=== PATIENT | male | born 1950 | race Caucasian/White ===

== ENCOUNTER 2024-11-07 08:27 | Outpatient (CLI) | payer MEDICARE, SELFPAY ==
--- OUTSIDE RECORDS SUMMARY | 2024-11-07 09:23 | XMS_ITS | Clinical Summary ---
Author Organization [facility] Address [address] [place] [address] Phone Care Team Providers Care Board Runner Name Role Phone Unavailable Primary Care Provider Unavailabl e Social History Tobacco Use Types Packs/Day Years Used Date Smoking Tobacco: Never Assessed Sex and Gender Information Value Date Recorded Sex Assigned at Not on file Legal Sex Male 9:33 PM CDT Gender Identity Not on file Sexual Orientation Not on file Plan of Treatment Health Maintenance Due Date Last Done Comments Hepatitis C Virus (HCV) Screening 1950 TdaP Immunization 1950 Cologuard 1997 Colonoscopy 1997 Colorectal Cancer Screening 1997 Immunochemical Fecal Occult Blood 1997 Pneumococcal Immunization (50+ years) (2 of 2 - PCV20 or PCV21) 02/04/2021 02/05/2020 Influenza Immunization (#1) 2024 09/0 07/2019, 12/15/2018, 01/04/2018, Additional history exists SARS-COV-2 Immunization (2024- season) 2024 12/22/2020, 05/13/2020, 04/11/2020 Respiratory Syncytial Virus (RSV) Immunization (Adult) (1 - 1-dose 75+ series) 11/26/2027 Zoster Immunization Completed 03/13/2019, 9 Hepatitis B Immunization Aged Out No longer eligible based on patient's age to complete this topic Human Papillomavirus (HPV) Immunization Aged Out No longer eligible based on patient's age to complete this topic Meningococcal Immunization (ACWY) Aged Out No longer eligible based on patient's age to complete this topic Rotavirus Immunization Aged Out No lo nger eligible based on patient's age to complete this topic Insurance MEDICARE [facility]
--- OUTSIDE RECORDS SUMMARY | 2024-11-07 09:23 | XMS_ITS | Encounter Summary ---
Author Organization [facility] Address [address] [place] [address] Care Team Providers Care Minister Helper Name Role Phone Jason Loomis MD Primary Care Provider [phone] Encounter Details Date Type Department Care Team (Late st Contact Info) Description 11/02/2022 Lab Requisition [facility] [address] [facility] [place] [address] Estefania Johnson, DO [address] [facility] [address] [place] [address] Social History Tobacco Use Types Packs/Day Years Used Date Smoking Tobacco: Never Smokeless Tobacco: Never Alcohol Use Standard Drinks/Week Comments Not Currently 0 (1 standard drink = 0.6 oz pur e alcohol) Sex and Gender Information Value Date Recorded Sex Assigned at Male 06/30/2022 2:02 PM CDT Legal Sex Male 2:02 PM CDT Gender Identity Not on file Sexual Orientation Choose not to disclose 2019 5:55 PM RECORD CUTTER documented as of this encounter Plan of Treatment Upcoming Encounters Date Type Department Care Team (Late Contact Info) Description 12/12/2024 1:00 AM CDT Clinical Support [facility] - Cardiology [address] [facility], [facility] [address] [place] [id number] 03/01/2025 2:40 PM RECORD CUTTER Office Visit [facility] [address] [place] [address] Tristan Yuen MD [address] [facility] [address] [place] [address] 03/13/2025 1:00 AM RECORD CUTTER Clinical Support [facility] - Cardiology [address], [address] [address] 03/15/2025 2:00 PM RECORD CUTTER Office Visit [facility] - Cardiology [address], [address] [address] Vito Carlton MD [address] [address] 06/12/2025 1:00 AM CDT Clinical Support [facility] - Cardiology [address], [address] [phone] documented as of this encounter Procedures Procedure Name Priority Date/Time Associated Diagnosis Comments DERMATOPATHOLOGY Routine 11/02/2022 9:46 AM CDT documented in this encounter Results * DERMATOPATHOLOGY (11/02/2022 9:46 AM CDT) Case Report Dermatopathology Report Case: [id number] Authorizing Provider: Estefania Johnson DO Collected: 11/02/2022 09:46 AM Ordering Location: [facility] Lab Received: 11/03/2022 06:34 AM Pathologist: Loyda Leal MD Specimen: Skin, left upper arm 4:01 PM CDT DERMATOPATHOLOGY LABORATORY Final Diagnosis Specimen A. SKIN, left upper arm: LICHEN PLANUS-LIKE KERATOSIS (BENIGN LICHENOID KERATOSIS) (L82.1) 3 4:01 PM CDT DERMATOPATHOLOGY LABORATORY at 1601 CDT Clinical History R/O NMSC 3 4:01 PM CDT DERMATOPATHOLOGY LABORATORY Gross Description Specimen A: Received is one formalin filled container labeled with the patient's name and designated left upper arm. The specimen consists of a shave biopsy measuring 8x7x1 mm. Jar 0. 3 4:01 PM CDT DERMATOPATHOLOGY LABORATORY Microscopic Description Specimen A. SKIN, left upper arm: The epidermis is mildly acanthotic. There is a lichenoid infiltrate with vacuolar changes of basilar keratinocytes and scattered necrotic keratinocytes. 3 4:01 PM CDT DERMATOPATHOLOGY LABORATORY Disclaimer An external and internal positive and negative controls are appropriate for the histochemical, immunohistochemical and immunofluorescence stain(s) in this case (if any), except where stated explicitly. The performance characteristics of the stain(s) cited in this report were developed and its performance characteristic determined by the Dermatopathology Laboratory at [facility], directed by Dr. Anais Adhikari. These tests need not be, and therefore are not, approved by the [place] Food and Drug Administration. The tests are used for clinical purposes. Billing Codes Specimen Charges Stain Charges 24107 1 3 4:01 PM CDT DERMATOPATHOLOGY LABORATORY Embedded Images 3 4:01 PM CDT DERMATOPATHOLOGY LABORATORY Pathology/Cytolo gy TISSUE SPECIMEN FROM SKIN / Unknown 11/02/2022 9:46 AM CDT 11/03/2022 6:34 AM CDT Estefania Johnson DO LAB - PATHOLOGY/CYTOLOGY ORDERABLES Final Result DERMATOPATHOLOGY LABORATORY [facility] - Department of Dermatology [facility] [address] [place] [address], [address] [phone] documented in this encounter Visit Diagnoses Not on filedocumented in this encounter Care Teams Minister Helper Relationship Specialty Start Date End Date Jason Loomis MD [address] [place] [address] PCP - General Internal Medicine 04/06/17 documented as of this encounter
--- OUTSIDE RECORDS SUMMARY | 2024-11-07 09:23 | XMS_ITS | Clinical Summary ---
Author Organization [facility] Address [address] [place] [address] Care Team Providers Care Office Machine Inspector Name Role Phone Jason Loomis MD Primary Care Provider + Jason Thorne MD Unavailable [phone] Jessica MD Unavailable Allergies Active Allergy Reactions Criticality Noted Date Comments Amoxicillin Diarrhea Low 08/21/2013 Clindamycin Other (See comments) High 08/28/2016 [place] hot in throat, Throat felt like it was on fire Erythromycin Anaphylaxis High 07/16/2016 Medications dapagliflozin (FARXIGA) 10 mg tablet Take 1 tablet (10 mg total) by mouth every morning Active tadalafiL (ADCIRCA) 10 mg tablet Take 1 tablet (10 mg total) by mouth daily as needed for erectile dysfunction Active eplerenone (INSPRA) 25 mg tablet Take 1 tablet (25 mg total) by mouth every morning Active sacubitriL-vals tayler (ENTRESTO) 49-51 mg tabletIndicatio ns:chronic heart failure Take 1 tablet by mouth 2 (two) times a day Active metoprolol XL (TOPROL-XL) 200 mg extended release tablet Take 0.5 tablets (100 mg total) by mouth 2 (two) times a day Active econazole 1 % cream Apply 1 Application topically as needed Active icosapent ethyL (VASCEPA) 1 gram capsule Take 1 capsule (1 g total) by mouth 2 (two) times a day Active levothyroxine (SYNTHROID) 175 mcg tablet Take 1 tablet (175 mcg total) by mouth laundry folder before breakfast Active aspirin 81 mg enteric coated tablet Take 1 tablet (81 mg total) by mouth every morning Active coenzyme Q10 100 mg capsule Take 2 capsules (200 mg total) by mouth daily Active multivitamin capsule Take 1 capsule by mouth daily Active cholecalciferol 25 mcg (1,000 unit) tablet Take 1 tablet (1,000 Units total) by mouth 2 (two) times a week Active rosuvastatin (CRESTOR) 40 mg tablet Take 30 mg by mouth nightly Active docusate sodium (COLACE) 100 mg capsuleIndicati ons:constipatio n Take 1 capsule (100 mg total) by mouth 2 (two) times a day 4 Active Eliquis 5 mg tablet Take 1 tablet (5 mg total) by mouth 2 (two) times a day 4 Active meloxicam (MOBIC) 15 mg tablet Take 1 tablet (15 mg total) by mouth daily 30 tablet 11 4 Active Active Problems Problem Noted Date Diagnosed Date Arthritis of right knee 09/16/2023 S/P left inguinal hernia repair 04/02/2023 Primary osteoarthritis of left knee 10/22/2022 Unilateral inguinal hernia without obstruction o r gangrene 09/22/2022 Assessment & Plan (09/22/2022 9:43 AM CDT): The patient has a symptomatic left inguinal hernia. He also was having issues with some meniscus that will need surgery as well. This is the more bothersome of the 2 at current time. This is tentatively set to be done in November. He wants a few months to recover after this which I think is absolutely reasonable. We will tentatively set him up for a left inguinal hernia repair in March. We will have him see cardiology in clearance before hand. We have gone over signs and symptoms of incarceration for which he would let us know as this could be a sign of bowel entrapment and other more serious issues. Hx of colonic polyps 03/25/2022 Overview (03/25/2022): Added automatically from request for surgery [id number] Cardiac resynchronization th erapy defibrillator (CRUSHER ASSEMBLER-D) in place 04/06/2017 Overview (02/19/2023): Last Assessment & Plan: I personally interrogated the ICD. The device is a [employer] brand BiV Chamber ICD. Model: Amplia MRI Quad Implanted on : 03/19/2017 Battery life: 7.5 yrs Leads: Atrial lead: P waves: 3.6 mV Capture threshold (mA): <1.5 @ 0.4 Impedance: 437 ohms Programmed 1.5 @ 0.4 ms, sensitivity 0.3 mV RV lead R waves: 13.6 mV Capture threshold (mA): <2 @ 0.4 Impedance: 437 ohms Programmed 2 @ 0.0.4 ms, sensitivity 0.3 mV LV lead Capture threshold (mA): <2 @ 0.4 Impedance: 646 ohms Programmed 2 @ 0.4 ms Episodes: 1 AT/AF episode, 3 hours, 1 NSVT on 06/14/2019 Pacing [place]: RA: 55.5% RV/LV: 89.1% Programming: Mode: DDD Lower rate: 60 bpm Upper rate: 140 bpm AV delay: Sensed/Paced = 130/150 Therapies: VF Zone > 182bpm - treated with shocks FVT zone > 250 bpm VT Zone > 167 bpm - monitor only Ventricular tachycardia 03/19/2017 Overview (02/19/2023): Last Assessment & Plan: No sustained VT on interrogation. Systolic CHF with reduced le ft ventricular function, NYHA class 2 12/17/2016 BMI 30.0-30.9,adult 11/11/2016 Healthcare maintenance 11/10/2016 Medication management 11/10/2016 Atypical atrial flutter 11/06/2016 Overview (02/19/2023): Last Assessment & Plan: No sustained recurrence. Some afib seen. CTM Presence of prosthetic heart valve 09/28/2016 Overview (02/19/2023): On 09-24-2016 33 mm Mosaic Presence of aortocoronary bypass graft 7 Overview (02/19/2023): CHRISTY to LAD and SVG to OM1 on 09-24-2016 S/P tricuspid valve repair 09/25/2016 Overview (02/19/2023): Overview: On 09-24-2016 S/P MVR (mitral valve replacement) 09/25/2016 Overview (02/19/2023): Overview: On 09-24-2016 33 mm Mosaic Overview: On 09-24-2016 33 mm Mosaic S/P Maze operation for atrial fibrillation 09/25 Overview (02/19/2023): Overview: Biatrial intraoperative Maze done on 09-24-2016 S/P CABG x 2 09/24/2016 Overview (02/19/2023): Overview: CHRISTY to LAD and SVG to OM1 on 09-24-2016 Overview: CHRISTY to LAD and SVG to OM1 on 09-24-2016 Sleep apnea 07/13/2016 Overview (02/19/2023): Overview: Using CPAP Using CPAP Rheumatic tricuspid insufficiency 07/13/2016 Osteoarthritis 07/13/2016 Nonrheumatic mitral valve insufficiency 07/14/19 17 Overview (02/19/2023): Overview: Severe -ECHO 02/06 Overview: Severe -ECHO 02/06 Severe -ECHO 02/06 Elevated liver enzymes 07/13/2016 Dyslipidemia 07/13/2016 Vitamin D deficiency 04/20/2014 Overview (05/28/2016): Vitamin D deficiency Polyp of colon 04/20/2014 Overview (05/28/2016): Colon polyps History of anticoagulant therapy 04/20/2014 Overview (05/28/2016): Encounter for current long-term use of anticoagulants Hyperlipidemia 04/20/2014 Overview (02/19/2023): Hyperlipidemia Asymmetrical sensorineural hearing loss 01/05/20 14 Sensorineural hearing loss (SNHL) of both ears 0 11/09/2013 Generalized ischemic myocardial dysfunction 06/22 Overview (05/29/2016): Ischemic cardiomyopathy Benign hypertension 07/08/2013 Overview (05/29/2016): BENIGN HYPERTENSION Hypothyroidism 12/29/2010 Overview (02/19/2023): HYPOTHYROIDISM NOS Essential (primary) hypertension 01/01/2010 Persistent atrial fibrillation 11/28/2009 Overview (02/19/2023): Afib Overview: On coumadin. S/P biatrial intraoperative Maze done on 09-24-2016 and recurrence on 09-27-2016 Overview: Afib Last Assessment & Plan: [id number] at least 3 - HTN, age, and CHF. Cont AC. On coumadin. S/P biatrial intraoperative Maze done on 09-24-2016 and recurrence on 09-27-2016 Last Assessment & Plan: No recurrent Afib on interrogation for this year. 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 angina pectoris 02/23/2008 Overview (02/19/2023): COR ATH UNSP VSL NTV/GFT Overview: S/p IA, stent '99 Overview: S/p IA, stent '99 S/p IA, stent '99 Resolved Problems Problem Noted Date Diagnosed Date Resolved Date Hypertension 04/20/2014 11/11/2016 Overview (05/28/2016): Hypertension Immunizations Immunization Administration Dates Next Due HPV, Unspecified 12/02/2016 Influenza, Quadrivalent, Spl it, Preservative Free, Intradermal 12/09/2015,11/21/2014 Influenza, Split 12/13/2012, 2,12/26/2010,2009 Influenza, Trivalent, IM (MDV) 12/03/2016,2008,12/07/2007 Influenza, Trivalent, Recomb inant, Egg Free, Preservative Free, Antibiotic Free, IM (FLUBLOK) 12/07/2013 Tdap 12/07/2007 Surgical History Surgery Date Site/Laterality Comments OTHER SURGICAL HISTORY elbow surgery right CARDIAC VALVE REPLACEMENT Mitral Valve Replacement with Bioprosthetic Maze, Left Atrial Appendage ligation, Tricuspid Grace Repair CARDIAC DEFIBRILLATOR PLACEMENT [employer] CARDIAC PACEMAKER PLACEMENT [employer] PORT PLACEMENT CHEST >5 YEARS 10/06/2016 N/A PORT PLACEMENT CHEST >5 YEARS 10/06/2016 N/A CORONARY ARTERY BYPASS GRAFT 09/24/2016 CABG-2 vessel TOTAL KNEE ARTHROPLASTY 12/31/2022 Left FINGER SURGERY Right middle finger HERNIA REPAIR 03/25/2023 Bilateral inguinal Medical History Medical History Date Comments Atrial fibrillation (HCC) Atrial fibrillation Sleep apnea sleep apnea Benign hypertension Unspecified hypothyroidism Primary osteoarthritis of left knee CAD (coronary artery disease) Hypothyroidism Motion sickness Myocardial infarct (HCC) 11/1998 Family History Medical History Relation Name Comments Hypertension Brother Hypertension; Heart attack Father heart attack; Hypertension Father Hypertension; Other Father Heart disease/ [place]; Cause of : Heart disease/ [place] Bipolar disorder Mother Bipolar dis order; Cancer Mother Cancer; Bipolar disorder Sister Bipolar dis order; Hypertension Son 1 Hypertension; Hypothyroidism Son 2 Hypothyroidis m; Relation Name Status Comments Brother Father (Age 48) Mother Sister Son 1 Son 2 Social History Tobacco Use Types Packs/Day Years Used Date Smoking Tobacco: Never Smokeless Tobacco: Never Alcohol Use Standard Drinks/Week Comments No 0 (1 standard drink = 0.6 oz pur e alcohol) AUDIT-C Answer Date Recorded Q1: How often do you have a drink containing alcohol? Never 08/31/2023 Q2: How many drinks containi ng alcohol do you have on a typical day when you are drinking? Patient does not drink Q3: How often do you have si x or more drinks on one occasion? Never 08/31/2023 Personal Safety Answer Date Recorded Have you ever been in or are you currently in a harmful physical or emotional relationship or is someone making you feel afraid or unsafe? 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 Gender Identity Not on file Sexual Orientation Not on file Obstetrics History Last Filed Vital Signs Vital Sign Reading Time Taken Comments Blood Pressure 98/52 09/17/2023 7:36 AM CDT Pulse 60 09/17/2023 7:36 AM CDT Temperature 37.1 C (98.8 F) 09/17/2023 7:36 AM CDT Respiratory Rate 16 09/17/2023 7:36 AM CDT Oxygen Saturation 96% 09/17/2023 7:36 AM CDT Inhaled Oxygen Concentration - - Weight 98.1 kg (216 lb 4.3 oz) 09/16/2023 12:31 PM CDT Height 180.3 cm (5' 11) 09/16/2023 12:31 PM CDT Body Mass Index 30.16 09/16/2023 12:31 PM CDT Plan of Treatment Health Maintenance Due Date Last Done Comments Hepatitis C Screening 1950 Hepatitis B Screening 1970 Prostate Cancer Screening-PSA 11/04/2017 11/04/2016, 04/17/2015 Well Visit 65+ 2017 DTaP/Tdap/Td Vaccine (2 - Td or Tdap) 12/06/2017 12/07/2007 Depression Screening 12/30/2017 12/30/2016, 12/17/2016, 12/10/2016, Additional history exists Pneumococcal vaccine 65+ (2 of 2 - PPSV23, PCV20, or PCV21) 04/01/2020 02/05/2020 Fall Risk Assessment 09/16/2024 09/17/2023, 12/24/19 23 Covid-19 Vaccine (5 - 2024-2 6 season) 2024 12/09/2021, 12/22/2020, 05/13/2020, Additional history exists Influenza Vaccine (#1) 2024 , 12/05/2020, 10/29/2019, Additional history exists Colon Cancer Screening-Colonoscopy 06/24/2032 06/24/2022, 01/10/2016, 01/10/2016, Additional history exists Zoster Vaccine Completed 03/13/2019, 01/11/2019 Abdominal Aortic Aneurysm (A AA) Screen Completed 09/11/2020, 08/02/2020, 05/29/2020 Colon Cancer Screening-CT Colonography Discontinued 06/24/2022, 01/10/2016, 01/10/2016, Additional history exists Colon Cancer Screening-DNA Stool Discontinued 06/24/2022, 01/10/2016, 01/10/2016, Additional history exists Colon Cancer Screening-FIT Discontinued 06/24, 01/10/2016, 01/10/2016, Additional history exists Colon Cancer Screening-Sigmoidoscopy Discontinued 06/24/2022, 01/10/2016, 01/10/2016, Additional history exists Medical Devices Implanted Type Area Cornice Maker Device Identifier Shelf Expiration Date Model / Serial / Lot Icd-03/19/2017 Implanted:03/19 by Vito Carlton MD (Quantity not on file) ICD Chest Med[employer]onic [id number] / [id number] / [employer] Triathlon Posterior Stabilize Bead Knee Left 8 Component Femoral 5516-F-801 - [id number] Implanted:Qty: 1 on 12/31/2022 by Jason Thorne MD at Left: Knee [employer] [id number] 03/20/2026 5516-F-801 / / [id number] [employer] Triathlon Tritanium Knee 7 Baseplate Tibial 5536-B-700 - [id number] Implanted:Qty: 1 on 12/31/2022 by Jason Thorne MD at Left: Knee [employer] [id number] 07/21/2027 5536-B-700 / / [id number] [employer] Insert Tibial Triathlon 7 H13mm Knee Bearing Posterior Stabilize Sterile 1892-M-917-[id number] - [id number] Implanted:Qty: 1 on 12/31/2022 by Jason Thorne MD at Left: Knee [employer] [id number] 11/16/2023 5532-G-713 -E / / [id number] [employer]/C R Bard Mesh Surgical Inguinal Hernia Synthetic Patch 3dmax 4x6in [id number] - [id number] Implanted:Qty: 1 on 03/26/2023 by Abilio Colon MD at [facility] Left: Inguinal [employer]/C R Bard 06/20/2027 [id number] / / [id number] [employer]/O rtho Insert Tibial Fix Deep [facility] Xlpe Legion Sz 7-8 10mm [id number] - [id number] Implanted:Qty: 1 on 09/16/2023 by Jason Thorne MD at Right: Knee [employer] r[employer]o [id number] 10/06/2030 [id number] / / [id number] [employer]/O rtho Tibial Baseplate Knee Porous Right Fixed With Journey Lock K 15 Pork Size 7 [id number] - [id number] Implanted:Qty: 1 on 09/16/2023 by Jason Thorne MD at Right: Knee [employer] r[employer]o [id number] 04/27/2033 [id number] / / [id number] [employer]O rtho Legion Cruciate Retain Knee Right 8 Component Femoral Triplett Porous [id number] - [id number] Implanted:Qty: 1 on 09/16/2023 by Jason Thorne MD at Right: Knee [employer]o [id number] 03/27/2033 [id number] / / [id number] Procedures Procedure Name Priority Date/Time Associated Diagnosis Comments COLONOSCOPY 06/24/2022 7:25 AM CDT PSA SCREEN Routine 11/04/2016 8:01 AM CDT from Last 3 Months or Most Recently Relevant to Health Maintenance Results * COLONOSCOPY (06/24/2022 7:25 AM CDT) Anatomical Region Laterality Modality Other Narrative Procedure Note Jessica Giradr MD - 06/24/2022 7:25 AM CDT [facility] Patient Name: Vinicius Mendoza Procedure Date: 06/24/2022 7:25 AM Date of : 1950 Admit Type: Outpatient Age: 71 Gender: Male Attending MD: Jessica Girard M.D. Room: [facility] ENDOSCOPY ROOM 2 Note Status: Finalized Patient Profile: This is a 71 year old male hx of HTN, HLD, CAD,CHF, AF on AC, ICD, bioprosthetic valve, IRVIN, hypothyroidism here for colon polyp surveillance.No polyps found on colonoscopy 2015. One rectal polypin 2010. No family hx of colon cancer Procedure: Colonoscopy Indications: High risk colon cancer surveillance: Personalhistory of colonic polyps, Last colonoscopy: December2015 Referring MD: Jason Loomis M.D. Providers: Jessica Girard M.D. Impression: - Perianal skin tags found on perianal exam. - One 3 mm polyp in the descending colon, removedwith a jumbo cold forceps. Resected and retrieved. - Diverticulosis in the entire examined colon. - Internal hemorrhoids. Recommendation: - Patient has a contact number available for emergencies. The signs and symptoms of potential delayed complications were discussed with thepatient. Return to normal activities tomorrow. Written discharge instructions were provided to thepatient. - Discharge patient to home (with escort). - Resume previous diet. - Continue present medications. - Await pathology results. - Repeat colonoscopy in 7-10 years for surveillance based on pathology results. - Return to primary care physician as previously scheduled. Medicines: Monitored Anesthesia Care Complications: No immediate complications. Estimated Blood Loss: Estimated blood loss was minimal. Procedure: Pre-Anesthesia Assessment: - Prior to the procedure, a History and Physicalwas performed, and patient medications and allergieswere reviewed. The patient is competent. The risks and benefits of the procedure and the sedation optionsand risks were discussed with the patient. Allquestions were answered and informed consent was obtained. Patient identification and proposed procedure were verified by the physician, the nurse and the certified medical biller in the endoscopy suite. Mental Status Examination: normal. Prophylactic Antibiotics: The patient does not require prophylactic antibiotics. Prior Anticoagulants: The patient has taken Pradaxa (dabigatran), last dose was 3 days prior toprocedure. ASA Grade Assessment: III - A patient with severe systemic disease. After reviewing the risks and benefits, the patient was deemed in satisfactory condition to undergo the procedure. The anesthesia plan was to use monitored anesthesia care (MAC). Immediately prior to administration of medications, the patient was re-assessed for adequacy to receive sedatives. The heart rate, respiratory rate, oxygen saturations, blood pressure, adequacy of pulmonary ventilation, and response to care were monitored throughout the procedure. The physical status ofthe patient was re-assessed after the procedure. The benefits, risks and alternatives of theprocedure and sedation were discussed and informed consentwas obtained. All questions were answered. Please referto the signed informed consent document in the medical record. The scope was passed under direct vision.The Colonoscope [id number] was introducedthrough the anus and advanced to the the cecum, identifiedby appendiceal orifice and ileocecal valve. The bowel preparation used was Miralax via split dose instruction. The bowel preparation used wasbisacodyl tablets via split dose instruction. The colonoscopy was performed without difficulty. The patient tolerated the procedure well. The quality of thebowel preparation was adequate. Bowel prep wasadministered using a split dose. Findings: Skin tags were found on perianal exam. A 3 mm polyp was found in the descending colon. The polyp wassessile. The polyp was removed with a jumbo cold forceps. Resection andretrieval were complete. Scattered small and large-mouthed diverticula were found in theentire colon. Internal hemorrhoids were found during retroflexion. Jessica Girard M.D. 06/24/2022 8:50:30 AM Number of Addenda: 0 Note Initiated On: 06/24/2022 7:25 AM Procedure Code(s): --- Professional --- 53389, Colonoscopy, flexible; with biopsy, single or multiple --- Technical --- 35196, Colonoscopy, flexible; with biopsy, single or multiple Diagnosis Code(s): --- Professional --- Z86.010, Personal history of colonic polyps D12.4, Benign neoplasm of descending colon K64.8, Other hemorrhoids K64.4, Residual hemorrhoidal skin tags K57.30, Diverticulosis of large intestine without perforation orabscess without bleeding --- Technical --- Z86.010, Personal history of colonic polyps D12.4, Benign neoplasm of descending colon K64.8, Other hemorrhoids K64.4, Residual hemorrhoidal skin tags K57.30, Diverticulosis of large intestine without perforation orabscess without bleeding CPT copyright 2020 [employer]. All rights reserved. The codes documented in this report are preliminary and upon salmon troll fisher reviewmay be revised to meet current compliance requirements. Recognized by the [employer] for promoting quality in endoscopy us Jessica Girard MD ENDOSCOPY PROCEDURES Final Resul t * PSA screen (11/04/2016 8:01 AM CDT) [facility] PSA 0.6 0.0 - 4.0 ng/mL [facility] - 01 Comment: Melissa ECLIA methodology. According to the [employer], Serum PSA should decrease and remain at undetectable levels after radical prostatectomy. The AUA defines biochemical recurrence as an initial PSA value 0.2 ng/mL or greater followed by a subsequent confirmatory PSA value 0.2 ng/mL or greater. Values obtained with different assay methods or kits cannot be used interchangeably. Results cannot be interpreted as absolute evidence of the presence or absence of malignant disease. 11/04/2016 8:01 AM CDT 11/04/2016 Narrative [facility] - 11/05/2016 7:15 AM CDT Performed at: [address] [id number] Speech Language Pathology Assistant: Casimiro Mcpherson PhD, Phone: [phone] Jason Loomis MD LAB BLOOD ORDERABLES Fin al Result [facility] - 01 from Last 3 Months or Most Recently Relevant to Health Maintenance Insurance MEDICARE [facility] Member Subscriber Plan / Payer (Ef fective 2020-Present) Name:Vinicius Mendoza Relation to Subscriber:Self Name:Vinicius Mendoza Payer ID:[id number] Group ID:Not on file Type:COMMERCIAL Address: [facility] [address] [id number] [facility] Member Subscriber Plan / Payer (Ef fective 2020-Present) Name:Vinicius Mendoza Relation to Subscriber:Self Name:Vinicius Mendoza Payer ID:[id number] Group ID:[id number] Type:COMMERCIAL Address: [facility] [address] [id number] MEDICARE [facility] Advance Directives For more information, please contact: [phone] * Full Code (Latest Code Status on File) Date Activated Date Inactivated Comments 09/16/2023 5:48 PM 09/17/2023 4:12 PM * Full Code Date Activated Date Inactivated Comments 12/31/2022 5:02 PM 01/01/2023 4:44 PM * Full Code Date Activated Date Inactivated Comments 06/24/2022 7:50 AM 06/24/2022 1:36 PM * Full Code Date Activated Date Inactivated Comments 06/24/2022 7:50 AM 06/24/2022 7:50 AM Care Teams Office Machine Inspector Relationship Specialty Start Date End Date Jason Loomis MD [address] [address] PCP - General 05/22/16 Jason Thorne MD [address] [facility] [address] [place] [address] Consulting Physician Orthopedic Surgery 09/22/22 Jessica Girard MD [address] [place] [address] [facility] [address] [place] [address] Consulting Physician Gastroenterology 09/22/22
--- OUTSIDE RECORDS SUMMARY | 2024-11-07 09:24 | XMS_ITS | Clinical Summary ---
Author Organization [facility] Address [address] [place] [address] Care Team Providers Care Stone Driller Helper Name Role Phone Jason Loomis MD Primary Care Provider [phone] Source Comments [facility],non-[facility] Affiliates and Associated Physician Practices is amultiple site organization consisting of ambulatory clinics and hospital sitesin [place], [place], [place] and [place]. This disclosure is being madepursuant to the Care Everywhere program and may not contain all information available regarding this patient. Last updated 17.[facility] Allergies Active Allergy Reactions Criticality Noted Date Comments Clindamycin Other High 08/28/2016 [place] hot in throat, Throat felt like it was on fire Erythromycin Anaphylaxis High 07/16/2016 Medications * Be aware that medications may not be up to date on this document. Alwaysverify current medications with the patient. aspirin (ASPIRIN) 81 MG tablet Take 1 (one) tablet by mouth once daily Active MULTIPLE VITAMIN PO Take 1 tablet by mouth once daily Active rosuvastatin (CRESTOR) 10 MG tablet Take 3 (three) tablets by mouth once daily Active vitamin D3 (CHOLECACIFEROL) 5000 UNITS Take 1 (one) tablet by mouth DAILY 10,000 7 Active ENTRESTO 49-51 MG tablet 1 (one) tablet 2 times daily 0 Active metoprolol succinate XL 24hr (TOPROL XL) 200 MG tabletIndication s:Persistent atrial fibrillation (HCC),Atypical atrial flutter (HCC) Take 1 tablet by mouth once daily 90 tablet 3 0 Active Additional Information Patient taking differently: 100 mgOral2 TIMES DAILY, Reported on 08/23/2024 econazole nitrate (SPECTAZOLE) 1 % cream once daily as needed prn 0 Active VASCEPA 1 g capsule 0 Active levothyroxine (SYNTHROID) 175 MCG tablet 0 Active apixaban (ELIQUIS) 5 MG tablet Take 1 (one) tablet by mouth 2 times daily 180 tablet 2 1 Active tadalafil (CIALIS) 10 MG tablet Take 1 (one) tablet by mouth once daily as needed 1 Active eplerenone (INSPRA) 25 MG tablet 1 Active CPAP Use as directed Acti ve amoxicillin (AMOXIL) 500 MG capsule ONLY FOR DENTAL WORK 2 Active QuickVue At-Home Covid-19 Test KIT as directed 2 Active dapagliflozin propanediol (Farxiga) 10 MG tablet Take 1 (one) tablet by mouth every morning 90 tablet 1 2 Active ezetimibe (Zetia) 10 MG tablet Take 1 (one) tablet by mouth once daily 5 Active Coenzyme Q10 (CO Q 10 PO) Take 200 mg by mouth once daily Active Active Problems Problem Noted Date Diagnosed Date Cardiac resynchronization th erapy defibrillator (INFORMATION SECURITY ANALYST-D) in place 04/06/2017 Assessment & Plan (08/24/2019 12:59 PM CDT): I personally interrogated the ICD. The device [...] 3 hours, 1 NSVT on 06/14/2019 Pacing [place]: RA: 55.5% RV/LV: 89.1% Programming: Mode: DDD Lower rate: 60 bpm Upper rate: 140 bpm AV delay: Sensed/Paced = 130/150 Therapies: VF Zone > 182bpm - treated with shocks FVT zone > 250 bpm VT Zone > 167 bpm - monitor only Assessment & Plan (02/09/2019 4:00 PM TUBE MAKING MACHINE OPERATOR): Device interrogated today. BiV pacing percentage low at 89.8%. Will increase metoprolol from 100mg XL daily to 150mg Xl daily. Will also increase upper tracking rate to 140 bpm. VT (ventricular tachycardia) 03/19/2017 Assessment & Plan (08/24/2019 9:24 AM CDT): No sustained VT on interrogation. Ventricular tachycardia 03/19/2017 Systolic CHF with reduced le ft ventricular function, NYHA class 2 12/17/2016 BMI 30.0-30.9,adult 11/11/2016 Atypical atrial flutter 11/06/2016 Assessment & Plan (08/24/2019 12:59 PM CDT): No sustained recurrence. Some afib seen. CTM Assessment & Plan (02/09/2019 2:44 PM TUBE MAKING MACHINE OPERATOR): No evidence of recurrence since last visit, cont anticoagulation Presence of aortocoronary bypass graft 7 Overview (05/24/2017): CHRISTY to LAD and SVG to OM1 on 09-24-2016 Persistent atrial fibrillation 09/28/2016 Overview (05/24/2017): On coumadin. S/P biatrial intraoperative Maze done on 09-24-2016 and recurrence on 09-27-2016 Assessment & Plan (02/09/2019 3:59 PM TUBE MAKING MACHINE OPERATOR): No recurrent Afib on interrogation for this year. Continue Dabigatran Presence of prosthetic heart valve 09/28/2016 Overview (05/24/2017): On 09-24-2016 33 mm Mosaic Other specified postprocedural states 09/28/2016 Overview (05/24/2017): Biatrial intraoperative Maze done on 09-24-2016 Personal history of other di seases of the circulatory system 09/28/2016 Overview (05/24/2017): Biatrial intraoperative Maze done on 09-24-2016 S/P Maze operation for atrial fibrillation 09/25 Overview (04/06/2017): Overview: Biatrial intraoperative Maze done on 09-24-2016 S/P MVR (mitral valve replacement) 09/25/2016 Overview (04/06/2017): Overview: On 09-24-2016 33 mm Mosaic S/P tricuspid valve repair 09/25/2016 Overview (04/06/2017): Overview: On 09-24-2016 S/P CABG x 2 09/24/2016 Overview (04/06/2017): Overview: CHRISTY to LAD and SVG to OM1 on 09-24-2016 Atherosclerotic heart diseas e of [place] coronary artery without angina pectoris 08/28/2016 Overview (05/24/2017): S/p TX, stent '99 Dyslipidemia 07/13/2016 Hyperlipidemia 07/13/2016 Mitral valve regurgitation 07/13/2016 Overview (04/06/2017): Overview: Severe -ECHO 02/06 Sleep apnea 07/13/2016 Overview (05/24/2017): Using CPAP Tricuspid regurgitation 07/13/2016 Abnormal levels of other serum enzymes 7 Nonrheumatic mitral valve insufficiency 07/14/19 17 Overview (05/24/2017): Severe -ECHO 02/06 Osteoarthritis 07/13/2016 Rheumatic tricuspid insufficiency 07/13/2016 Elevated liver enzymes 07/13/2016 residential current use of anticoagulant 5 History of anticoagulant therapy 04/20/2014 Overview (04/06/2017): Overview: Encounter for current long-term use of anticoagulants Polyp of colon 04/20/2014 Overview (04/06/2017): Overview: Colon polyps Vitamin D deficiency 04/20/2014 Overview (04/06/2017): Overview: Vitamin D deficiency Atherosclerosis of coronary artery 07/08/2013 Overview (04/06/2017): Overview: COR ATH UNSP VSL NTV/GFT Atrial fibrillation 07/08/2013 Overview (04/06/2017): Overview: Afib Assessment & Plan (08/24/2019 1:02 PM CDT): OLLHA2BSOE at least 3 - HTN, age, and CHF. Cont AC. Assessment & Plan (02/09/2019 2:44 PM TUBE MAKING MACHINE OPERATOR): No evidence of recurrence since last visit, cont anticoagulation Benign hypertension 07/08/2013 Overview (04/06/2017): Overview: BENIGN HYPERTENSION Assessment & Plan (08/24/2019 1:01 PM CDT): BP a little elevated, will increase metoprolol Generalized ischemic myocardial dysfunction 06/22 Overview (04/06/2017): Overview: Ischemic cardiomyopathy Hypothyroid 12/29/2010 Hypothyroidism 12/29/2010 HTN (hypertension) 01/01/2010 Ischemic cardiomyopathy 01/01/2010 Essential (primary) hypertension 01/01/2010 CAD (coronary artery disease) 02/23/2008 Overview (04/06/2017): Overview: S/p TX, stent '99 Encounters Date Type Department Care Team Description 09/12/2024 1:10 AM CDT Clinical Support [facility] - Cardiology [address], [place] [place] [phone] Ischemic cardiomyopathy ; Cardiac resynchronization therapy defibrillator (INFORMATION SECURITY ANALYST-D) in place 08/23/2024 1:50 PM CDT Office Visit [facility] [address] [place] [address] Tristan Yuen MD Anticoagulant long-term use (Primary Dx); Ischemic cardiomyopathy; Coronary artery disease involving [place] coronary artery of [place] heart without angina pectoris; PAF (paroxysmal atrial fibrillation) (HCC) from Last 3 Months Immunizations Immunization Administration Dates Next Due INFLUENZA VACCINE, TRIV. (AF LURIA, FLUZONE TRIVALENT; 6MO+) (IIV3) 12/09/2015,11/21/2014,12/07/2013,2008,12/07/2007 FLU VACCINE TRI IIV3 SPLIT P F IM (FLUVIRIN) 12/03/2016 INFLUENZA VACCINE 12/13/2012, 2,12/26/2010,2009 INFLUENZA VACCINE, HIGH-DOSE , QUADR. (FLUZONE HIGH-DOSE QUADRIVALENT; 65Y+), 0.7 ML (HD-IIV4) 12/15/2018 TDAP (7yrs+) 12/07/2007 Zoster Hzv Vacc Recombinant Inj Im 03/13/2019, Social History Tobacco Use Types Packs/Day Years Used Date Smoking Tobacco: Never Smokeless Tobacco: Never Tobacco Cessation:Counseling Given: Not Answered Alcohol Use Standard Drinks/Week Comments Not Currently 0 (1 standard drink = 0.6 oz pur e alcohol) Sex and Gender Information Value Date Recorded Sex Assigned at Male 06/30/2022 2:02 PM CDT Legal Sex Male 2:02 PM CDT Gender Identity Not on file Sexual Orientation Choose not to disclose 2019 5:55 PM TUBE MAKING MACHINE OPERATOR Last Filed Vital Signs Vital Sign Reading Time Taken Comments Blood Pressure 120/68 08/23/2024 2:00 PM CDT Pulse 62 08/23/2024 2:00 PM CDT Temperature 37.1 C (98.7 F) 08/06/2023 1:12 PM CDT Respiratory Rate 12 08/06/2023 1:12 PM CDT Oxygen Saturation 98% 08/23/2024 2:00 PM CDT Inhaled Oxygen Concentration - - Weight 98.4 kg (217 lb) 08/23/2024 2:00 PM CDT Height 180.3 cm (5' 11) 08/23/2024 2:00 PM CDT Body Mass Index 30.27 08/23/2024 2:00 PM CDT Plan of Treatment Upcoming Encounters Date Type Department Care Team (Late st Contact Info) Description 12/12/2024 1:00 AM CDT Clinical Support [facility] - Cardiology [address] [place] [address], [address] [phone] 03/01/2025 2:40 PM TUBE MAKING MACHINE OPERATOR Office Visit [facility] [address] [place] [address] Tristan Yuen MD [address] [facility] [address] [place] [address] 03/13/2025 1:00 AM TUBE MAKING MACHINE OPERATOR Clinical Support [facility] - Cardiology [address] [place] [address], [address] [phone] 03/15/2025 2:00 PM TUBE MAKING MACHINE OPERATOR Office Visit [facility] - Cardiology [address] [place] [address], [address] [phone] Vito Carlton MD [facility] [facility], [address] [address] 06/12/2025 1:00 AM CDT Clinical Support [facility] - Cardiology [facility] [address] [facility], [address] [phone] Health Maintenance Due Date Last Done Comments MORA (AGES 45-75) - COLON CA SCREENING 1950 CT COLONOGRAPHY - COLON CA SCREENING 1950 FIT - COLON CA SCREENING 1950 FLEX SIG - COLON CA SCREENING 1950 MEDICARE AWV 12 MONTHS 1950 HEPATITIS C SCREENING 11/21/1970 PNEUMOCOCCAL VACCINE 50+ (1 of 2 - PCV) 11/26/1971 Respiratory Syncytial Virus (RSV) Vaccine Pt: or over 60 yrs (1 - Risk 60-74 years 1-dose series) 2012 DTAP/TDAP/TD VACCINES (2 - Td or Tdap) 12/06/2017 12/07/2007 SCREENING FOR DIABETES 09/04/2023 , 12/31/2017, 03/19/2017, Additional history exists DEPRESSION SCREENING 02/23/2024 COVID-19 VACCINE ( season) 2024 INFLUENZA VACCINE (#1) 2024 9, 12/03/2016, 12/09/2015, Additional history exists COLON MONITORING 06/24/2032 06/24/2022 COLONOSCOPY - COLON CA SCREENING 06/24/2032 06/24/2022 Colorectal Cancer Screening 06/24/2032 ZOSTER VACCINE Completed 03/13/2019, 01/11/2019 HEPATITIS B VACCINE Aged Out No longe r eligible based on patient's age to complete this topic HIB VACCINE Aged Out No longer eligi ble based on patient's age to complete this topic HPV VACCINE Aged Out No longer eligi ble based on patient's age to complete this topic MENINGOCOCCAL (Group B) VACCINE SHARED DECISION-MAKING Aged Out No longer eligible based on patient's age to complete this topic MENINGOCOCCAL GROUPS A/C/Y/W VACCINE Aged Out No longer eligible based on patient's age to complete this topic Procedures Procedure Name Priority Date/Time Associated Diagnosis Comments UT PM/ICD REMOTE TECH SERV Routine 10/01/2024 3:07 PM CDT Ischemic cardiomyopathy Cardiac resynchronization therapy defibrillator (INFORMATION SECURITY ANALYST-D) in place UT ICD DEVICE INTERROGAT REMOTE Routine 10/01/2024 3:07 PM CDT Ischemic cardiomyopathy Cardiac resynchronization therapy defibrillator (INFORMATION SECURITY ANALYST-D) in place CARDIAC PROCEDURE ORDER 09/11/2024 CARDIAC PROCEDURE ORDER 09/11/2024 COMPREHENSIVE METABOLIC PANEL Routine 09/03/2020 4:27 PM CDT Lytic bone lesion of hip from Last 3 Months or Most Recently Relevant to Health Maintenance Results * UT ICD DEVICE INTERROGAT REMOTE, UT PM/ICD REMOTE TECH SERV (10/01/2024 3:07 PM CDT) Narrative Vito Carlton MD - 10/01/2024 3:07 PM CDT Vito Carlton MD 10/01/2024 3:09 PM Dear Vinicius Mendoza, I reviewed the remote interrogation of your device. Your device's sensing and capture thresholds are appropriate and stable. Lead impedances for your device: Atrial lead: 437 ohms RV lead: 399 ohms LV lead: 627 ohms You are currently paced: Atrial: 73.9 % Ventricle: 87.6 % Over the last month you have been having almost 100% atrial fibrillation. It looks resolved now. The estimated remaining battery life for your device is 19 months Device function is normal, and no programming changes are required. Please call our offices if you have any further questions. Sincerely, Vito Carlton 10/01/2024 Vito Carlton MD PROCEDURE/MINOR SURGICAL ORDERAB LES Final Result * CARDIAC PROCEDURE ORDER (09/11/2024) Only the most recent of2 resultswithin the time period is included. Narrative 09/11/2024 Ordered by an unspecified provider. us Scanned Document CARDIAC SERVICES ORDERABLES Fin al Result * (ABNORMAL) COMPREHENSIVE METABOLIC PANEL (09/03/2020 4:27 PM CDT) BUN 18 7 - 26 mg/dL 09/03/2020 5:34 PM CDT [facility] Creatinine 0.91 0.56 - 0.96 mg/dL 09/03/2020 5:34 PM CDT [facility] Sodium 144 136 - 145 mmol/L 09/03/2020 5:34 PM CDT [facility] Potassium 4.0 3.5 - 4.5 mmol/L 09/03/2020 5:34 PM [facility] Chloride 105 98 - 107 mmol/L 09/03/2020 5:34 PM [facility] CO2 29 22 - 29 mmol/L 09/03/2020 5:34 PM [facility] Glucose 89 70 - 115 mg/dL 09/03/2020 5:34 PM [facility] Calcium 9.6 8.4 - 10.2 mg/dL 09/03/2020 5:34 PM [facility] Protein Total 7.1 6.0 - 8.3 g/dL 09/03/2020 5:34 PM [facility] Albumin 4.4 3.4 - 5.0 g/dL 09/03/2020 5:34 PM [facility] Bilirubin Total 1.9(H) 0.2 - 1.2 mg/dL 09/03/2020 5:34 PM [facility] Alkaline Phosphatase 45 40 - 150 U/L 09/03/2020 5:34 PM [facility] ALT 15 5 - 55 U/L 09/03/2020 5:34 PM [facility] AST 19 5 - 34 U/L 09/03/2020 5:34 PM [facility] Anion Gap 14 8 - 18 09/03/2020 5:34 PM [facility] BUN/Creatinine Ratio 20 7 - 23 09/03/2020 5:34 PM [facility] Osmolality Calculated 299 270 - 300 mOsm/kg 09/03/2020 5:34 PM [facility] Albumin/Globulin Ratio 1.6 1.1 - 2.3 09/03/2020 5:34 PM [facility] eGFR by CKD-EPI 65(L) >=90 mL/min/1.7 3 m2 09/03/2020 5:34 PM [facility] Blood BLOOD SPECIMEN / Unknown Lab Venipuncture / Unknown 09/03/2020 4:27 PM CDT 09/03/2020 5:09 PM T Alexey Hubbard MD LAB - CHEMISTRY ORDERABLES Final Result [facility] [address] [place] [address], [facility] [phone] from Last 3 Months or Most Recently Relevant to Health Maintenance Insurance MEDICARE [facility] MEDICARE [facility] MEDICARE MEDICARE [facility] MEDICARE Member Subscriber Plan / Payer (Ef fective 2020-Present) Name:Vinicius Mendoza Member ID:[id number] Relation to Subscriber:Self Name:VINICIUS MENDOZA Subscriber ID:[id number] Payer ID:Not on file Group ID:Not on file Type:Medicare Address: [place] [phone] [place] [employer] Member Subscriber Plan / Payer ( fective 2020-Present) Name:Vinicius Mendoza Member ID:[id number] Relation to Subscriber:Self Name:VINICIUS MENDOZA Subscriber ID:[id number] Payer ID:Not on file Group ID:Not on file Type:Medicare Address: [place] [id number] [place] [employer] [place] [employer] [place]IC[place] [facility] MEDICARE [facility] MEDICARE Member Subscriber Plan / Payer (Ef fective 2020-Present) Name:Vinicius Mendoza Member ID:[id number] Relation to Subscriber:Self Name:VINICIUS MENDOZA Subscriber ID:[id number] Payer ID:Not on file Group ID:Not on file Type:Medicare Address: [address] [employer] Member Subscriber Plan / Payer ( fective 2020-Present) Name:Vinicius Mendoza Relation to Subscriber:Self Name:VINICIUS MENDOZA Payer ID:Not on file Group ID:[id number] Type:Commercial Address: ATTN CLAIMS [place] [id number] MEDICARE Member Subscriber Plan / Payer ( fective 2020-Present) Name:Vinicius Mendoza Member ID:[id number] Relation to Subscriber:Self Name:VINICIUS MENDOZA Subscriber ID:[id number] Payer ID:Not on file Group ID:Not on file Type:Medicare Address: [address] MEDICARE [facility] MEDICARE [facility] MEDICARE [facility] MEDICARE Member Subscriber Plan / Payer ( fective 2020-Present) Name:Vinicius Mendoza Member ID:[id number] Relation to Subscriber:Self Name:VINICIUS MENDOZA Subscriber ID:[id number] Payer ID:Not on file Group ID:Not on file Type:Medicare Address: [address] Member Subscriber Plan / Payer ( fective 2020-Present) Name:Vinicius Mendoza Relation to Subscriber:Self Name:VINICIUS MENDOZA Payer ID:Not on file Group ID:[id number] Type:Commercial Address: ATTN CLAIMS [place] [id number] MEDICARE Member Subscriber Plan / Payer ( fective 2020-Present) Name:Vinicius Mendoza Member ID:[id number] Relation to Subscriber:Self Name:VINICIUS MENDOZA Subscriber ID:[id number] Payer ID:Not on file Group ID:Not on file Type:Medicare Address: [address] MEDICARE [facility] MEDICARE [facility] MEDICARE [facility] MEDICARE Member Subscriber Plan / Payer ( fective 2020-Present) Name:Vinicius Mendoza Member ID:[id number] Relation to Subscriber:Self Name:VINICIUS MENDOZA Subscriber ID:[id number] Payer ID:Not on file Group ID:Not on file Type:Medicare Address: [place] [phone] [place] [employer] [place] [employer] Member Subscriber Plan / Payer ( fective 2020-) Name:Vinicius Mendoza Relation to Subscriber:Self Name:VINICIUS MENDOZA Payer ID:Not on file Group ID:[id number] Type:Commercial Address: ATTN CLAIMS [place] [id number] MEDICARE Member Subscriber Plan / Payer ( fective 2020-) Name:Vinicius Mendoza Member ID:[id number] Relation to Subscriber:Self Name:VINICIUS MENDOZA Subscriber ID:[id number] Payer ID:Not on file Group ID:Not on file Type:Medicare Address: [place] [phone] [place] [employer] MEDICARE [facility] MEDICARE MEDICARE [facility] Member Subscriber Plan / Payer ( fective 2020-Present) Name:Vinicius Mendoza Relation to Subscriber:Self Name:VINICIUS MENDOZA Payer ID:Not on file Group ID:[id number] Type:Commercial Address: ATTN CLAIMS [address] [place] [id number] MEDICARE [facility] Care Teams Stone Driller Helper Relationship Specialty Start Date End Date Jason Loomis MD [address] [place] [address] PCP - General Internal Medicine 04/06/17
--- OUTSIDE RECORDS SUMMARY | 2024-11-07 09:24 | XMS_ITS | Encounter Summary ---
Author Organization [facility] Address [address] [facility] [place] [address] Care Team Providers Care Corporate Events Director Name Role Phone Jason Loomis MD Primary Care Provider [phone] Encounter Details Date Type Department Care Team (Late st Contact Info) Description 02/10/2022 Telephone [facility] [address] [place] [address] Vito Carlton MD [facility] [address] [address] Social History Tobacco Use Types Packs/Day Years [...] Choose not to disclose 2019 5:55 PM PARTS RUNNER COVID-19 Exposure Response Date Recorded In the last 10 days, have yo u been in contact with someone who was confirmed or suspected to have Coronavirus/COVID-19? No / Unsure 02/06/2022 1:31 PM PARTS RUNNER documented as of this encounter Miscellaneous Notes * Telephone Encounter - Abrahan Barth - 02/11/2022 12:34 PM CST I scheduled for 3:40pm but advised Mr. Mendoza that the appt is for 4pm. S RUNNER * Telephone Encounter - Abrahan Barth - 02/10/2022 8:20 AM CST Mr Mendoza called to request that his appt be RSC for a time earlier or later than his 2pm on 03/13. His has an appt at 2:30 in area of the clinic and he wishes for her to be at the appt. S RUNNER documented in this encounter Plan of Treatment Upcoming Encounters Date Type Department Care Team (Late st Contact Info) Description 12/12/2024 1:00 AM CDT Clinical Support [facility] - Cardiology [address], [address] [address] 03/01/2025 2:40 PM PARTS RUNNER Office Visit [facility] [address] [place] [address] Tristan Yuen MD [address] [facility] [address] [place] [address] 03/13/2025 1:00 AM PARTS RUNNER Clinical Support [facility] - Cardiology [address], [address] [address] 03/15/2025 2:00 PM PARTS RUNNER Office Visit [facility] - [facility] [address], [address] [address] Vito Carlton MD [address], [address] [address] 06/12/2025 1:00 AM CDT Clinical Support [facility] - [facility]iology [address] [facility] [address] [place] [phone] documented as of this encounter Visit Diagnoses Not on filedocumented in this encounter Care Teams Corporate Events Director Relationship Specialty Start Date End Date Jason Loomis MD [address] [place] [address] PCP - General Internal Medicine 04/06/17 documented as of this encounter
== END 2024-11-07 08:28 | disposition home or self-care (01) ==
LOC: ANHBWCAUD 08:32
PROVIDERS: PCP Internal Medicine; Visit Provider Internal Medicine
DX: H90.3 Sensorineural hearing loss, bilateral (principal); R06.83 Snoring; R40.0 Somnolence
CPT/HCPCS: 92557; 92567